=== PATIENT | female | born 1970 | race Caucasian/White ===

== ENCOUNTER 2016-07-03 16:32 | Emergency (ER) | payer SELFPAY ==
[2016-07-03 16:37] VITALS: BP 133/78; PULSE 83; TEMP 98; BMI 29.2
--- NOTE | 2016-07-03 17:20 | PDOC ---
History of Present Illness - General Chief Complaint: Vaginal Sxs Stated Complaint: PAIN Time Seen by Provider: 07/03/16 16:40 History Source: Patient Exam Limitations: No Limitations - History of Present Illness Initial Comments: CHIEF COMPLAINT: 45 y/o afebrile female with PMH uterine fibroid c/o vaginal pain for the past 1 month. HISTORY OF PRESENT ILLNESS: The patient denies f/c, n/v/d, CP, SOB, abd pain, hematuria, dysuria, abnormal vaginal bleeding, abnormal vaginal discharge. She hasn't taken any OTC medications for her pain. She has not see her PCP or OB/ FILM REPRODUCER for her symptoms. Vital signs on arrival are within normal limits. REVIEW OF SYSTEMS: GENERAL/CONSTITUTIONAL: No fever/chills. No weakness. No weight change. HEAD, EYES, EARS, NOSE AND THROAT: No change in vision. No ear pain or discharge. No sore throat. CARDIOVASCULAR: No chest pain or shortness of breath. RESPIRATORY: No cough, wheezing, or hemoptysis. GASTROINTESTINAL: No abd pain, nausea, vomiting, diarrhea. GENITOURINARY: No dysuria, frequency, or change in urination. VAGINAL: +vaginal pain. MUSCULOSKELETAL: No joint or muscle swelling or pain. No neck or back pain. SKIN: No rash or easy bruising. NEUROLOGIC: No headache, vertigo, loss of consciousness, or loss of sensation. PHYSICAL EXAM: GENERAL: The patient is awake, alert, and fully oriented, in no acute distress. She is very well appearing and ambulatory, in NAD or obvious discomfort. HEAD: Normal with no signs of trauma. ENT: Pupils equal, round and reactive to light, extraocular movements intact, sclera anicteric, conjunctiva clear. Neck supple. LUNGS: Clear to auscultation bilaterally. Normal excursion. No respiratory distress or use of accessory muscles. CV: RRR, S1/S2, no MRG. Cap refill < 2 sec. ABDOMEN: Soft, non-distended, non-tender even to deep palpation, no hepatomegaly or splenomegaly, no masses. VAGINAL: No lesions, bleeding or discharge. Manual exam reveals mild left adnexal tenderness and CMT tenderness. EXTREMITIES: Normal range of motion, no edema. NEUROLOGICAL: Normal speech, normal gait. CN II-XII grossly intact. PSYCH: Normal mood, normal affect. SKIN: Warm, dry, normal turgor, no rashes or lesions noted. Past History - Past Medical History Allergies/Adverse Reactions: Allergies Allergy/AdvReac Type Severity Reaction Status Date / Time No Known Allergies Allergy Verified 07/03/16 16:35 Home Medications: Ambulatory Orders NK [No Known Home Medication] 07/03/16 - Surgical History Appendectomy: Yes - Immunization History Td Vaccination: Yes - Psycho/Social/Smoking Cessation Hx Anxiety: No Suicidal Ideation: No Smoking Status: No Smoking History: Never smoked Have you smoked in the past 12 months: No Number of Cigarettes Smoked Daily: 0 Information on smoking cessation initiated: No Hx Alcohol Use: No Drug/Substance Use Hx: No Substance Use Type: None *Physical Exam - Vital Signs Last Vital Signs Temp Pulse Resp BP Pulse Ox 98 F 83 18 133/78 100 07/03/16 16:35 07/03/16 16:35 07/03/16 16:35 07/03/16 16:35 07/03/16 16:35 Medical Decision Making - Medical Decision Making A/P: 45 y/o afebrile female with vaginal pain with history of fibroid for the past 1 month. No vaginal bleeding. Plan is as follows: 1. Motrin PO 2. Vaginal ultrasound Transvaginal ultrasound IMPRESSION: 1.4cm left ovarian cyst. 3cm spherical mass seen within the uterus that appears to be a leiomyoma. Follow up with nonemergent MRI recommended. Gave patient her results. Suggested she f/u with CRISIS THERAPIST as soon as possible and take Motrin for pain. Pt instructed to return to the ER with any worsening or concerning symptoms. The patient verbalizes understanding of all instructions, has no further questions and is awaiting discharge. *DC/Admit/Observation/Transfer Diagnosis at time of Disposition: Leiomyoma Ovarian cyst Qualifiers: Laterality: left Qualified Code(s): N83.202 - Unspecified ovarian cyst, left side - Discharge Dispostion Disposition: HOME Condition at time of disposition: Good - Referrals Referrals: Daniel Sosa MD [Primary Care Provider] - Tashia Tolentino MD [Staff Physician] - Call tomorrow - Patient Instructions Printed Discharge Instructions: DI for Uterine Fibroids, DI for Ovarian Cyst Additional Instructions: Discharge Instructions: -You have a fibroid in your uterus; please call Dr. Tolentino tomorrow to schedule a follow up appointment -you also have an ovarian cyst -Take over the counter Motrin for pain -Return to the ER with any worsening or concerning symptoms Instrucciones de rick: -Usted tiene un fibroma en eason tero; Por favor llame al Dr. Randa geller para programar lisette mohit de seguimiento -Rachelle tienes un quiste ovrico -Amelia en el mostrador Motrin para el dolor -Vuelva a la franco de emergencias con cualquier empeoramiento o sntomas relacionados Print Language: CZECH
[2016-07-03 17:21] LABS: URINE APPEARANCE SLCLOUDY; URINE BILIRUBIN NEGATIVE (NEGATIVE); URINE BLOOD NEGATIVE (NEGATIVE); URINE COLOR YELLOW; URINE GLUCOSE (UA) NEGATIVE (NEGATIVE); URINE KETONE NEGATIVE (NEGATIVE); URINE NITRITE NEGATIVE (NEGATIVE); URINE PROTEIN NEGATIVE (NEGATIVE); URINE UROBILINOGEN NEGATIVE E.U./dl (0.2-1.0)
[2016-07-03 17:23] LABS: URINE LEUK ESTERASE 2+ (NEGATIVE)
[2016-07-03] MEDS ORDERED: IBUPROFEN 600 MG TABLET (FP) PO ONE (17:42)
[2016-07-03] MEDS: IBUPROFEN 600 MG TABLET (FP) PO ONE (17:44)
== END 2016-07-03 19:35 | disposition home or self-care (01) ==
LOC: JERFT 16:32
DX: D25.9 Leiomyoma of uterus, unspecified (principal); N83.202 Unspecified ovarian cyst, left side
CPT/HCPCS: 76830-TC; 81003; 81015; 84703; 87086; 99281-25

== ENCOUNTER 2017-12-17 08:37 | Emergency (ER) | payer OTHER ==
[2017-12-17 08:53] VITALS: BP 102/68; PULSE 71; TEMP 97.7; BMI 24.6
--- NOTE | 2017-12-17 09:46 | PDOC ---
History of Present Illness - General Chief Complaint: Pain Stated Complaint: PAIN Time Seen by Provider: 12/17/17 09:16 History Source: Patient Exam Limitations: No Limitations - History of Present Illness Travel History: No Initial Comments: 12/17/17 09:39 47 yr female no pmhx with hemorrhoids for 4 months saw given hydrocortisone cream and lidocaine cream, pt states no relief. no bleeding or abdominal pain. pt denies constipation, states she had colonoscopy which was negative. Past History - Past Medical History Allergies/Adverse Reactions: Allergies Allergy/AdvReac Type Severity Reaction Status Date / Time No Known Allergies Allergy Verified 12/17/17 08:48 Home Medications: Ambulatory Orders Hydrocortisone Acetate [Anusol Hc Suppository -] 25 mg RC BID #28 supp.rect Metformin HCl 850 mg PO ASDIR 12/17/17 COPD: No Other medical history: colonoscopy - Surgical History Appendectomy: Yes Cholecystectomy: Yes - Immunization History Td Vaccination: Yes - Suicide/Smoking/Psychosocial Hx Smoking Status: No Smoking History: Never smoked Have you smoked in the past 12 months: No Number of Cigarettes Smoked Daily: 0 Hx Alcohol Use: No Drug/Substance Use Hx: No Substance Use Type: None Review of Systems - Review of Systems Able to Perform ROS?: Yes Is the patient limited Congolese proficient: Yes Musculoskeletal: Yes: Symptoms Reported *Physical Exam - Vital Signs Last Vital Signs Temp Pulse Resp BP Pulse Ox 97.7 F 71 16 102/68 99 12/17/17 08:50 12/17/17 08:50 12/17/17 08:50 12/17/17 08:50 12/17/17 08:50 - Physical Exam General Appearance: Yes: Nourished, Appropriately Dressed HEENT: positive: EOMI, JHON Respiratory/Chest: positive: Lungs Clear, Normal Breath Sounds Cardiovascular: positive: Regular Rhythm, Regular Rate Gastrointestinal/Abdominal: positive: Normal Bowel Sounds, Soft. negative: Tender Rectal Exam: positive: normal rectal tone, hemorrhoids (external 1cm non thrombosed, internal hemorrhoid as well no bleeding ). negative: decreased tone Extremity: positive: Normal Capillary Refill, Normal Inspection, Normal Range of Motion Medical Decision Making - Medical Decision Making 12/17/17 09:40 cc: rectal pain for 4 months history of hemorrhoid using cream no relief will prescribe suppository and GI follow up pt agrees with plan of care *DC/Admit/Observation/Transfer Diagnosis at time of Disposition: Hemorrhoids Qualifiers: Hemorrhoid type: unspecified Qualified Code(s): K64.9 - Unspecified hemorrhoids - Discharge Dispostion Disposition: HOME Condition at time of disposition: Good - Prescriptions Prescriptions: Hydrocortisone Acetate [Anusol Hc Suppository -] 25 mg RC BID #28 supp.rect - Referrals Referrals: Adan Young MD [Staff Physician] - - Patient Instructions Additional Instructions: follow with call him to tell him the pain is getting worse use the suppository as directed drink at least 2 liters of water increase fiber in your diet if any bleeding severe pain return to ER siga con el delvis Adameo para decirle que el dolor est empeorando usar el supositorio mark se indica beber al menos 2 litros de agua Incrementa la fibra en tu dieta. Si hay sangrado, dolor intenso, vuelva a la franco de emergencias. - Post Discharge Activity
== END 2017-12-17 09:47 | disposition home or self-care (01) ==
LOC: JERFT 08:37
DX: K64.9 Unspecified hemorrhoids (principal)
CPT/HCPCS: 99281-25

== ENCOUNTER 2018-02-02 12:49 | Emergency (ER) | payer OTHER ==
[2018-02-02 12:55] VITALS: BP 146/74; PULSE 86; TEMP 98; BMI 23.4
--- NOTE | 2018-02-02 13:15 | PDOC ---
History of Present Illness - General Chief Complaint: Hemorrhoids Stated Complaint: HEMORRHOIDS History Source: Patient Exam Limitations: No Limitations - History of Present Illness Initial Comments: 02/02/18 13:12 47 yr female with rectal pain, history of hemmorhoids. Pt is requesting a prescription for cream to place in the rectal area. Pt denies fever, neg abd pain or rectal bleeding. Pt has apt next week with GI doctor. Past History - Past Medical History Allergies/Adverse Reactions: Allergies Allergy/AdvReac Type Severity Reaction Status Date / Time No Known Allergies Allergy Verified 02/02/18 12:55 Home Medications: Ambulatory Orders Hydrocortisone Acetate [Anusol Hc Suppository -] 25 mg RC BID #28 supp.rect metFORMIN HCL [Metformin HCl] 850 mg PO ASDIR 12/17/17 Phenyleph/Pramoxin/Glycr/W.pet [Preparation H Cream] 51 gm RC BID #1 cream..g. 02/02/18 COPD: No - Surgical History Appendectomy: Yes Cholecystectomy: Yes - Immunization History Td Vaccination: Yes - Suicide/Smoking/Psychosocial Hx Smoking Status: No Smoking History: Never smoked Have you smoked in the past 12 months: No Number of Cigarettes Smoked Daily: 0 Hx Alcohol Use: No Drug/Substance Use Hx: No Substance Use Type: None *Physical Exam - Vital Signs Last Vital Signs Temp Pulse Resp BP Pulse Ox 98 F 86 18 146/74 99 02/02/18 12:51 02/02/18 12:51 02/02/18 12:51 02/02/18 12:51 02/02/18 12:51 - Physical Exam General Appearance: Yes: Nourished, Appropriately Dressed HEENT: positive: EOMI, JHON Gastrointestinal/Abdominal: positive: Normal Bowel Sounds, Soft. negative: Tender Rectal Exam: positive: hemorrhoids (non thrombosed external 1cm , brown stool in vault) Lymphatic: negative: Adenopathy Musculoskeletal: positive: Normal Inspection Extremity: positive: Normal Capillary Refill, Normal Inspection, Normal Range of Motion Integumentary: positive: Normal Color, Dry, Warm Neurologic: positive: Fully Oriented, Alert, Normal Mood/Affect, Normal Response , Motor Strength 5/5 Moderate Sedation - Procedure Monitoring Vital Signs: Procedure Monitoring Vital Signs Temperature 98 F 02/02/18 12:51 Pulse Rate 86 02/02/18 12:51 Respiratory Rate 18 02/02/18 12:51 Blood Pressure 146/74 02/02/18 12:51 O2 Sat by Pulse Oximetry (%) 99 02/02/18 12:51 Medical Decision Making - Medical Decision Making 02/02/18 13:17 cc: painful external hemmorhoid asking for prescription for cream no bleeding no abd pain pt has apt next week with her GI doctor no bleeding no evidence of thrombosed hemmorhoids will dc home preparation H *DC/Admit/Observation/Transfer Diagnosis at time of Disposition: Hemorrhoids Qualifiers: Hemorrhoid type: unspecified Qualified Code(s): K64.9 - Unspecified hemorrhoids - Discharge Dispostion Disposition: HOME Condition at time of disposition: Good - Prescriptions Prescriptions: Phenyleph/Pramoxin/Glycr/W.pet [Preparation H Cream] 51 gm RC BID #1 cream..g. - Referrals - Patient Instructions Printed Discharge Instructions: DI for Hemorrhoids Additional Instructions: drink 2 liters of water a day to avoid constipation high fiber diet as tolerated follow up as planned with your doctor next week - Post Discharge Activity
== END 2018-02-02 13:39 | disposition home or self-care (01) ==
LOC: JERFT 12:49
DX: Z76.0 Encounter for issue of repeat prescription (principal); K64.9 Unspecified hemorrhoids
CPT/HCPCS: 99281-25

== ENCOUNTER 2018-03-29 08:27 | Emergency (ER) | payer OTHER ==
[2018-03-29 08:55] VITALS: BP 111/64; PULSE 70; TEMP 98.5; BMI 26.4
[2018-03-29] MEDS ORDERED: MAG HYDROX/AL HYDROX/SIMETH 30 ML UNIT-DOSE CUP PO ONE (09:35)
[2018-03-29] MEDS ORDERED: MAG HYDROX/AL HYDROX/SIMETH 30 ML UNIT-DOSE CUP ONE (09:38)
--- NOTE | 2018-03-29 09:41 | PDOC ---
History of Present Illness - General Chief Complaint: Nausea/Vomiting Stated Complaint: STOMACH PAIN Time Seen by Provider: 03/29/18 09:16 History Source: Patient Exam Limitations: No Limitations - History of Present Illness Travel History: No Initial Comments: 03/29/18 09:42 47 year old female with history of constipation and surgical history of fibroid removal, presents with complaints of abdominal bloating. Reports taking trulance for constipation and metformin for her "metabolism" prescribed by head stock transfer clerk. States she stopped taking metformin 2 months ago and since then she has abdominal bloating. Also requesting media Quality: denies: sharpness Past History - Past Medical History Allergies/Adverse Reactions: Allergies Allergy/AdvReac Type Severity Reaction Status Date / Time No Known Allergies Allergy Verified 02/02/18 12:55 Home Medications: Ambulatory Orders Esomeprazole Magnesium [Nexium 24Hr] 20 mg PO DAILY #14 capsule.dr 03/29/18 Hydrocortisone Acetate [Anusol Hc Suppository -] 25 mg RC DAILY #14 supp.rect COPD: No - Surgical History Appendectomy: Yes Cholecystectomy: Yes - Immunization History Td Vaccination: Yes Immunization Up to Date: Yes - Suicide/Smoking/Psychosocial Hx Smoking Status: No Smoking History: Never smoked Have you smoked in the past 12 months: No Number of Cigarettes Smoked Daily: 0 Information on smoking cessation initiated: No Hx Alcohol Use: No Drug/Substance Use Hx: No Substance Use Type: None *Physical Exam - Vital Signs Last Vital Signs Temp Pulse Resp BP Pulse Ox 98.5 F 70 15 111/64 98 03/29/18 08:31 03/29/18 08:31 03/29/18 08:31 03/29/18 08:31 03/29/18 08:31 Moderate Sedation - Procedure Monitoring Vital Signs: Procedure Monitoring Vital Signs Temperature 98.5 F 03/29/18 08:31 Pulse Rate 70 03/29/18 08:31 Respiratory Rate 15 03/29/18 08:31 Blood Pressure 111/64 03/29/18 08:31 O2 Sat by Pulse Oximetry (%) 98 03/29/18 08:31 *DC/Admit/Observation/Transfer Diagnosis at time of Disposition: Abdominal bloating, Indigestion Hemorrhoid Qualifiers: Hemorrhoid type: unspecified Qualified Code(s): K64.9 - Unspecified hemorrhoids - Discharge Dispostion Disposition: HOME Condition at time of disposition: Good Decision to Admit order: No - Prescriptions Prescriptions: Esomeprazole Magnesium [Nexium 24Hr] 20 mg PO DAILY #14 capsule. Hydrocortisone Acetate [Anusol Hc Suppository -] 25 mg RC DAILY #14 supp.rect - Referrals Referrals: Daniel Sosa MD [Primary Care Provider] - - Patient Instructions Printed Discharge Instructions: Indigestion Additional Instructions: Please take medication as prescribed Please call community support associate for follow up appointment - Post Discharge Activity Forms/Work/School Notes: Back to Work
== END 2018-03-29 09:59 | disposition home or self-care (01) ==
LOC: JERFT 08:27 → JER 08:27 → JERFT 09:59
DX: K30 Functional dyspepsia (principal); R14.0 Abdominal distension (gaseous); K64.9 Unspecified hemorrhoids
CPT/HCPCS: 99281-25

== ENCOUNTER 2018-07-23 09:04 | Emergency (ER) | payer OTHER ==
[2018-07-23 09:26] VITALS: BP 116/62; PULSE 80; TEMP 98.2; BMI 25.4
--- NOTE | 2018-07-23 09:55 | PDOC ---
History of Present Illness - General Chief Complaint: Vaginal Sxs Stated Complaint: PAIN Time Seen by Provider: 07/23/18 09:54 History Source: Patient Exam Limitations: No Limitations - History of Present Illness Travel History: No Initial Comments: 07/23/18 using [place]ijani interpretation telephone: Patient came to emergency department for evaluation of irritation, pain/inflammation to her vulva, and left lower quadrant pain. States has history of fibroids with excision last year , has never been told she had ovarian cysts. States has pain in her left lower quadrant that's been intermittent over the past 3 weeks, which is progressively worsen. Denies fever, denies any nausea vomiting, diarrhea constipation. Denies any dysuria/pain or burning with void. No true vaginal discharge but complaints of inflammation to her perineal area. Has appointment to see her BACKHOE OPERATOR doctor in 2 weeks. 07/23/18 12:44 Timing/Duration: reports: getting worse, intermittent Quality: reports: mild, moderate Pain Radiation: reports: no radiation Activities at Onset: reports: none Past History - Travel Traveled outside of the country in the last 30 days: No Close contact w/someone who was outside of country & ill: No - Past Medical History Allergies/Adverse Reactions: Allergies Allergy/AdvReac Type Severity Reaction Status Date / Time No Known Allergies Allergy Verified 07/23/18 09:18 Home Medications: Ambulatory Orders NK [No Known Home Medication] 07/23/18 COPD: No - Surgical History Appendectomy: Yes Cholecystectomy: Yes - Immunization History Td Vaccination: Yes Immunization Up to Date: Yes - Suicide/Smoking/Psychosocial Hx Smoking Status: No Smoking History: Never smoked Have you smoked in the past 12 months: No Number of Cigarettes Smoked Daily: 0 Information on smoking cessation initiated: No Hx Alcohol Use: No Drug/Substance Use Hx: No Substance Use Type: None Review of Systems - Review of Systems Able to Perform ROS?: Yes Is the patient limited Welsh proficient: Yes Constitutional: Yes: Symptoms Reported, See HPI, Malaise. No: Fever HEENTM: No: Symptoms Reported Respiratory: Yes: Symptoms reported Cardiac (ROS): No: Symptoms Reported, Chest Pain ABD/GI: Yes: Symptoms Reported, See HPI, Abdominal cramping. No: Constipated, Diarrhea, Nausea, Vomiting : Yes: See HPI, Other ("inflamation"). No: Symptoms Reported, Dysuria, Discharge Neurological: No: Symptoms reported, Headache All Other Systems: Reviewed and Negative *Physical Exam - Vital Signs Last Vital Signs Temp Pulse Resp BP Pulse Ox 98.2 F 80 16 116/62 96 07/23/18 09:18 07/23/18 09:18 07/23/18 09:18 07/23/18 09:18 07/23/18 09:18 - Physical Exam General Appearance: Yes: Nourished, Appropriately Dressed HEENT: positive: JHON, Normal ENT Inspection, TMs Normal, Pharynx Normal Neck: positive: Supple. negative: Tender Respiratory/Chest: positive: Lungs Clear, Normal Breath Sounds Gastrointestinal/Abdominal: positive: Normal Bowel Sounds, Soft. negative: Tender, Guarding, Rebound Musculoskeletal: positive: Normal Inspection Extremity: positive: Normal Capillary Refill, Normal Range of Motion, Tender Integumentary: positive: Normal Color, Dry, Warm Neurologic: positive: risk analyst II-XII NML intact, Fully Oriented, Alert, Normal Mood/ Affect, Normal Response, Motor Strength 5/5 *DC/Admit/Observation/Transfer Diagnosis at time of Disposition: Ovarian cyst Qualifiers: Laterality: right Qualified Code(s): N83.201 - Unspecified ovarian cyst, right side - Discharge Dispostion Disposition: HOME Condition at time of disposition: Stable Decision to Admit order: No - Referrals Referrals: Dainel Sosa MD [Primary Care Provider] - - Patient Instructions Printed Discharge Instructions: DI for Abdominal Pain-Adult Additional Instructions: Rest, avoid any heavy lifting or strenuous activity until symptoms resolve Follow-up with BACKHOE OPERATOR doctor as scheduled Return to emergency department for fevers, worsening pain, any other problems. - Post Discharge Activity Forms/Work/School Notes: Back to Work
[2018-07-23 10:24] LABS: URINE APPEARANCE CLEAR; URINE BILIRUBIN NEGATIVE (NEGATIVE); URINE COLOR YELLOW; URINE GLUCOSE (UA) NEGATIVE (NEGATIVE); URINE KETONE NEGATIVE (NEGATIVE); URINE LEUK ESTERASE NEGATIVE (NEGATIVE); URINE NITRITE NEGATIVE (NEGATIVE); URINE PROTEIN NEGATIVE (NEGATIVE); URINE UROBILINOGEN 0.2 mg/dL (0.2-1.0)
== END 2018-07-23 15:03 | disposition home or self-care (01) ==
LOC: JERFT 09:04 → JER 09:04 → JERFT 15:03
DX: N83.201 Unspecified ovarian cyst, right side (principal)
CPT/HCPCS: 76830-TC; 81003; 84703; 87086; 99281-25

== ENCOUNTER 2019-10-30 10:31 | Emergency (ER) | payer OTHER ==
[2019-10-30 10:54] VITALS: BP 133/63; PULSE 83; TEMP 98.2; BMI 23.4
--- NOTE | 2019-10-30 12:33 | PDOC ---
History of Present Illness - General Chief Complaint: Vaginal Sxs Stated Complaint: VAGINAL SXS Time Seen by Provider: 10/30/19 11:48 History Source: Patient Exam Limitations: No Limitations - History of Present Illness Travel History: No Initial Comments: 10/30/19 12:32 49-year-old female presents to ED with complaints of boil to her vaginal opening. Patient states symptoms have been noted since June after she had a heavy menstrual cycle and now states with exertion between defecation and urination she had feels a bump within her vaginal canal. Patient states is able to push it back in but is concerned and decided come to the ER for further evaluation. Patient states in 2017 had fibroid removal by CUP SETTER LOCKSTITCH specialist in [place]. Timing/Duration: reports: intermittent Quality: reports: mild Pain Radiation: reports: no radiation Activities at Onset: reports: none Aggravating Factors: improves with: Defecation, Voiding Alleviating Factors: improves with: Rest Past History - Travel History Traveled outside of the country in the last 30 days: No Close contact w/someone who was outside of country & ill: No - Medical History Allergies/Adverse Reactions: Allergies Allergy/AdvReac Type Severity Reaction Status Date / Time No Known Allergies Allergy Verified 10/30/19 12:02 Home Medications: Ambulatory Orders NK [No Known Home Medication] 07/23/18 COPD: No - Surgical History Appendectomy: Yes Cholecystectomy: Yes - Reproductive History Is Patient Now?: No - Immunization History Td Vaccination: Yes Immunization Up to Date: Yes - Psycho-Social/Smoking History Patient Lives Alone: No Lives with/in: spouse/SO Smoking Status: No Smoking History: Never smoked Have you smoked in the past 12 months: No Number of Cigarettes Smoked Daily: 0 Information on smoking cessation initiated: No - Substance Abuse Hx (Audit-C & DAST Scrn) How often the patient has a drink containing alcohol: Never Score: In Men: 4 or > Positive; In Women: 3 or > Positive: 0 Screen Result (Pos requires Nsg. Audit-10AR): Negative In the last yr the pt used illegal drug/Rx for NonMed reason: No Score: Yes response is considered Positive: 0 Screen Result (Positive result requires Nsg. DAST-10): Negative Review of Systems - Review of Systems Able to Perform ROS?: Yes Constitutional: No: Symptoms Reported HEENTM: No: Symptoms Reported Respiratory: No: Symptoms reported Cardiac (ROS): No: Symptoms Reported ABD/GI: No: Symptoms Reported : Yes: Other Musculoskeletal: No: Symptoms Reported Integumentary: No: Symptoms Reported Neurological: No: Symptoms reported *Physical Exam - Vital Signs Last Vital Signs Temp Pulse Resp BP Pulse Ox 98.2 F 83 16 133/63 99 10/30/19 10:45 10/30/19 10:45 10/30/19 10:45 10/30/19 10:45 10/30/19 10:45 - Physical Exam General Appearance: Yes: Nourished, Appropriately Dressed. No: Apparent Distress HEENT: negative: Pale Conjunctivae Neck: positive: Supple Respiratory/Chest: positive: Lungs Clear, Normal Breath Sounds. negative: Respiratory Distress, Accessory Muscle Use Cardiovascular: positive: Regular Rhythm, Regular Rate. negative: Murmur Female Pelvic Exam: positive: cervical os closed, other (Noted protruding pink soft uterus at the opening of the vaginal canal). negative: discharge, adnexal tenderness, vaginal bleeding Gastrointestinal/Abdominal: positive: Soft. negative: Tenderness Extremity: positive: Normal Inspection Integumentary: positive: Normal Color, Moist Neurologic: positive: Motor Strength 5/5 ED Treatment Course - RADIOLOGY Radiology Studies Ordered: Category Date Time Status TRANSVAGINAL ULTRASOUND US [US] Stat Ultrasound 10/30/19 12:14 Ordered Medical Decision Making - Medical Decision Making 10/30/19 12:35 Chief complaint: Patient here for evaluation of mass to her vaginal opening for the past 4 to 5 months without pain or discharge. Exam: Patient with protruding uterus within the vaginal opening with no signs of necrosis and able to push uterus up into the canal. Plan: Urinalysis urine culture and ultrasound ordered 10/30/19 13:02 Laboratory Tests 10/30/19 12:15 Ur Specific [place] 1.008 L Urine Nitrite Negative Ur Leukocyte Esterase 1+ H Urine WBC (Auto) 43 Urine Bacteria (Auto) 419 10/30/19 13:44 Ultrasound shows a small uterine fibroid with a primary endometrium measuring 10 mm in thickness. Tiny right ovarian cyst noted. Discharge - Discharge Information Problems reviewed: Yes Clinical Impression/Diagnosis: Prolapsed uterus, UTI (urinary tract infection) Condition: Improved Disposition: HOME - Follow up/Referral - Patient Discharge Instructions Patient Printed Discharge Instructions: DI for Uterine Prolapse Additional Instructions: Please follow-up with your ANODE CREW SUPERVISOR specialist at in [place]. Please also take antibiotics for UTI as discussed. - Post Discharge Activity
[2019-10-30 12:42] LABS: EPI CELLS 17 /uL (0-25.1); HYALINE CASTS 1 /uL (0-3.1); URINE APPEARANCE CLEAR; URINE BACTERIA 419 /uL (0-1359); URINE BILIRUBIN NEGATIVE (NEGATIVE); URINE COLOR YELLOW; URINE GLUCOSE (UA) NEGATIVE (NEGATIVE); URINE KETONE NEGATIVE (NEGATIVE); URINE LEUK ESTERASE 1+ (NEGATIVE); URINE NITRITE NEGATIVE (NEGATIVE); URINE PROTEIN NEGATIVE (NEGATIVE); URINE RBC 5 /uL (0-23.9); URINE UROBILINOGEN 0.2 mg/dL (0.2-1.0); URINE WBC 43 /uL (0-25.8)
== END 2019-10-30 13:52 | disposition home or self-care (01) ==
LOC: JERFT 10:31
DX: N81.4 Uterovaginal prolapse, unspecified (principal); N39.0 Urinary tract infection, site not specified
CPT/HCPCS: 76830-TC; 81003; 87086; 99284-25